=== PATIENT | male | born 1965 | race Caucasian/White ===

== ENCOUNTER 2018-02-17 05:27 | Inpatient (IN) | payer OTHER ==
--- NOTE | 2018-02-17 06:05 | ER ---
Nurse's Notes [facility] Name: Anselmo Balderrama Age: 52 yrs Sex: Male : 1965 Arrival Date: 02/17/2018 Time: 05:31 Bed 7 Private MD: Jack Magdaleno Diagnosis: Abdominal tenderness;Cholelithiasis;Cholecystitis Presentation: 02/17 05:38 Presenting complaint: Patient states: I have had gallstones for a couple of years and I ed1 was taken off my blood thinners for a colonoscopy and I think I am having issues with my gallbladder now. Transition of care: patient was not received from another setting of care. Onset of symptoms was February 17, 2018. Risk Assessment: Do you want to hurt yourself or someone else? Patient reports no desire to harm self or others. Initial Sepsis Screen: Does the patient meet any 2 criteria? No. Patient's initial sepsis screen is negative. Does the patient have a suspected source of infection? No. Patient's initial sepsis screen is negative. Care prior to arrival: None. 05:38 Method Of Arrival: Ambulatory ed1 05:40 Acuity: THIEN 3 lp1 Triage Assessment: 05:42 General: Appears uncomfortable, Behavior is calm, cooperative. Pain: Complains of pain ed1 in right upper quadrant Pain does not radiate. Pain currently is 8 out of 10 on a pain scale. Quality of pain is described as sharp, Pain began suddenly, 3 hours ago. Is continuous. EENT: No signs and/or symptoms were reported regarding the EENT system. Neuro: Level of Consciousness is awake, alert, obeys commands, Oriented to person, place, time, situation. Cardiovascular: Denies chest pain, Heart tones S1 S2 present. Respiratory: Airway is patent Respiratory effort is even, unlabored, Respiratory pattern is regular, symmetrical, Breath sounds are clear bilaterally. Denies cough, shortness of breath. GI: Abdomen is non-distended, Bowel sounds present X 4 quads. Abd is soft X 4 quads Abdomen is tender to palpation in right upper quadrant Patient currently denies diarrhea, nausea, vomiting. : No signs and/or symptoms were reported regarding the genitourinary system. Derm: Skin is intact, is healthy with good turgor, Skin is dry, Skin is normal, Skin temperature is warm. Musculoskeletal: Circulation, motion, and sensation intact. Historical: - Allergies: 05:42 No Known Allergies; ed1 - Home Meds: 05:42 Lisinopril Oral [Active]; atorvastatin oral oral [Active]; Effient oral oral [Active]; ed1 Aspirin Oral [Active]; - PMHx: 05:42 Hypertension; ed1 - PSHx: 05:42 Heart stents; ed1 - Immunization history:: Adult Immunizations up to date, Flu vaccine is not up to date. - Social history:: Smoking status: Patient/guardian denies using tobacco. - Ebola Screening: : Patient negative for fever greater than or equal to 101.5 degrees Fahrenheit, and additional compatible Ebola Virus Disease symptoms Patient denies exposure to infectious person Patient denies travel to an Ebola-affected area in the 21 days before illness onset No symptoms or risks identified at this time. - Family history:: not pertinent. Screenin:46 Abuse screen: Denies threats or abuse. Denies injuries from another. Nutritional ed1 screening: No deficits noted. Tuberculosis screening: No symptoms or risk factors identified. Fall Risk None identified. Assessment: 05:46 General: See triage assessment. ed1 05:51 Reassessment: I agree with triage assessment. lp1 07:00 General: Appears in no apparent distress. comfortable, Behavior is calm, cooperative. rb1 Pain: Complains of pain in right upper quadrant. Neuro: Level of Consciousness is awake, alert, obeys commands, Oriented to person, place, time, situation. Cardiovascular: Capillary refill < 3 seconds is brisk in bilateral fingers. Respiratory: Airway is patent Respiratory effort is even, unlabored, Respiratory pattern is regular, symmetrical. GI: No signs and/or symptoms were reported involving the gastrointestinal system. : No signs and/or symptoms were reported regarding the genitourinary system. Derm: Skin is pink, warm \T\ dry. 08:00 Reassessment: Patient appears in no apparent distress at this time. No changes from rb1 previously documented assessment. pt. ambulated to the restroom without difficulty. 09:05 Reassessment: Called report to FAMILIA Bowers. Information from the [facility] was given. All rb1 questions asked and answered. 09:23 Reassessment: Patient appears in no apparent distress at this time. Patient and/or rb1 family updated on plan of care and expected duration. Pain level reassessed. Patient is alert, oriented x 3, equal unlabored respirations, skin warm/dry/pink. Vital Signs: 05:42 BP 178 / 93; Pulse 52; Resp 18; Temp 98.6(O); Pulse Ox 100% on R/A; Weight 122.47 kg; ed1 Height 6 ft. 4 in. (193.04 cm); Pain 8/10; 08:42 BP 124 / 86; Pulse 62; Resp 16; Temp 97.6(TE); Pulse Ox 98% on R/A; ph 05:42 Body Mass Index 32.87 (122.47 kg, 193.04 cm) ed1 ED Course: 05:31 Patient arrived in ED. es 05:32 Jack Magdaleno MD is Private Physician. es 05:38 Lebron Sim MD is Attending Physician. daniele 05:40 Melody Lyn RN is Primary Nurse. lp1 05:40 Triage completed. lp1 05:42 Arm band placed on right wrist. ed1 05:46 Patient has correct armband on for positive identification. Placed in gown. Bed in low ed1 position. Call light in reach. Side rails up X 1. Adult w/ patient. Pulse ox on. NIBP on. 06:02 Netta Zhang MD is Hospitalizing Provider. daniele 06:56 X-ray completed. Portable x-ray completed in exam room. Patient tolerated procedure sg4 well. 06:57 Inserted saline lock: 20 gauge in right antecubital area, using aseptic technique. lt1 06:58 XRAY Chest (1 view) In Process Unspecified. EDMS 09:37 No provider procedures requiring assistance completed. Patient admitted, IV remains in rb1 place. Administered Medications: 06:15 Drug: NS 0.9% 1000 ml Route: IV; Rate: 1 bolus; Site: right antecubital; lp1 06:15 Drug: Pepcid 20 mg Route: IVP; Site: right antecubital; lp1 07:00 Follow up: Response: No adverse reaction rb1 06:15 Drug: morphine 4 mg Route: IVP; Site: right antecubital; lp1 07:00 Follow up: Response: No adverse reaction; Pain is decreased rb1 06:15 Drug: Zofran 4 mg Route: IVP; Site: right antecubital; lp1 07:00 Follow up: Response: No adverse reaction; Nausea is decreased rb1 06:15 Drug: Zosyn 3.375 grams Route: IVPB; Infused Over: 60 mins; Site: right antecubital; lp1 08:50 CANCELLED (Duplicate Order): NS 0.9% 1000 ml IV at 1 bolus Per protocol; 1000 mL bolus daniele Outcome: 06:05 Decision to Hospitalize by Provider. daniele 09:37 Patient left the ED. rb1 09:37 Admitted to Tele accompanied by tech, family with patient, via wheelchair, room 419, rb1 with chart, Report called to FAMILIA Bowers 09:37 Condition: stable 09:37 Instructed on the need for admit. Signatures: Dispatcher [employer] EDMS Lebron Sim MD MD cha Salyer, Edna es Riggs, Erika, PUBLIC HEALTH DOCTOR PUBLIC HEALTH DOCTOR ed1 Melody Lyn RN RN lp1 Chelita Frias RN RN Sarahy Agarwal, RN RN rb1 Tawana Spain 4 Tanisha Zepeda [facility]
--- NOTE | 2018-02-17 06:06 | EDPHYS ---
Physician Documentation [facility] Name: Anselmo Balderrama Age: 52 yrs Sex: Male : 1965 Arrival Date: 02/17/2018 Time: 05:31 Bed 7 Private MD: Jack Magdaleno ED Physician Lebron Sim HPI: 02/17 05:57 This 52 yrs old Male presents to ER via Ambulatory with complaints of daniele Abdominal Pain. 05:57 The patient presents with abdominal pain in the upper abdomen, in the right upper daniele quadrant, abdominal distention in the upper abdomen, in the lower abdomen. Onset: The symptoms/episode began/occurred this morning, last night. The symptoms do not radiate. Associated signs and symptoms: none. The symptoms are described as crampy, sharp. Modifying factors: The symptoms are alleviated by nothing, remaining still, the symptoms are aggravated by movement, touching the area. Severity of pain: At its worst the pain was moderate in the emergency department the pain is unchanged. The patient has not experienced similar symptoms in the past. Historical: - Allergies: 05:42 No Known Allergies; ed1 - Home Meds: 05:42 Lisinopril Oral [Active]; atorvastatin oral oral [Active]; Effient oral oral [Active]; ed1 Aspirin Oral [Active]; - PMHx: 05:42 Hypertension; ed1 - PSHx: 05:42 Heart stents; ed1 - Immunization history:: Adult Immunizations up to date, Flu vaccine is not up to date. - Social history:: Smoking status: Patient/guardian denies using tobacco. - Ebola Screening: : Patient negative for fever greater than or equal to 101.5 degrees Fahrenheit, and additional compatible Ebola Virus Disease symptoms Patient denies exposure to infectious person Patient denies travel to an Ebola-affected area in the 21 days before illness onset No symptoms or risks identified at this time. - Family history:: not pertinent. ROS: 05:57 Constitutional: Negative for fever, chills, and weight loss, Eyes: Negative for injury, daniele pain, redness, and discharge, ENT: Negative for injury, pain, and discharge, Neck: Negative for injury, pain, and swelling, Cardiovascular: Negative for chest pain, palpitations, and edema, Respiratory: Negative for shortness of breath, cough, wheezing, and pleuritic chest pain, Back: Negative for injury and pain, : Negative for injury, bleeding, discharge, and swelling, MS/Extremity: Negative for injury and deformity, Skin: Negative for injury, rash, and discoloration, Neuro: Negative for headache, weakness, numbness, tingling, and seizure, Psych: Negative for depression, anxiety, suicide ideation, homicidal ideation, and hallucinations, Allergy/Immunology: Negative for hives, rash, and allergies, Endocrine: Negative for neck swelling, polydipsia, polyuria, polyphagia, and marked weight changes, Hematologic/Lymphatic: Negative for swollen nodes, abnormal bleeding, and unusual bruising. 05:57 Abdomen/GI: Positive for abdominal pain, nausea and vomiting, nausea, vomiting. Exam: 05:57 Constitutional: This is a well developed, well nourished patient who is awake, alert, daniele and in no acute distress. Head/Face: Normocephalic, atraumatic. Eyes: Pupils equal round and reactive to light, extra-ocular motions intact. Lids and lashes normal. Conjunctiva and sclera are non-icteric and not injected. Cornea within normal limits. Periorbital areas with no swelling, redness, or edema. ENT: Nares patent. No nasal discharge, no septal abnormalities noted. Tympanic membranes are normal and external auditory canals are clear. Oropharynx with no redness, swelling, or masses, exudates, or evidence of obstruction, uvula midline. Mucous membranes moist. Neck: Trachea midline, no thyromegaly or masses palpated, and no cervical lymphadenopathy. Supple, full range of motion without nuchal rigidity, or vertebral point tenderness. No Meningismus. Chest/axilla: Normal chest wall appearance and motion. Nontender with no deformity. No lesions are appreciated. Cardiovascular: Regular rate and rhythm with a normal S1 and S2. No gallops, murmurs, or rubs. Normal PMI, no JVD. No pulse deficits. Respiratory: Lungs have equal breath sounds bilaterally, clear to auscultation and percussion. No rales, rhonchi or wheezes noted. No increased work of breathing, no retractions or nasal flaring. Back: No spinal tenderness. No costovertebral tenderness. Full range of motion. Male : Normal genitalia with no discharge or lesions. Skin: Warm, dry with normal turgor. Normal color with no rashes, no lesions, and no evidence of cellulitis. MS/ Extremity: Pulses equal, no cyanosis. Neurovascular intact. Full, normal range of motion. Neuro: Awake and alert, GCS 15, oriented to person, place, time, and situation. Cranial nerves II-XII grossly intact. Motor strength 5/5 in all extremities. Sensory grossly intact. Cerebellar exam normal. Normal gait. Psych: Awake, alert, with orientation to person, place and time. Behavior, mood, and affect are within normal limits. 05:57 Abdomen/GI: Inspection: abdomen appears normal, Bowel sounds: normal, Palpation: abdomen is soft and non-tender, Liver: no appreciated palpable abnormalities, Hernia: not appreciated. Vital Signs: 05:42 BP 178 / 93; Pulse 52; Resp 18; Temp 98.6(O); Pulse Ox 100% on R/A; Weight 122.47 kg; ed1 Height 6 ft. 4 in. (193.04 cm); Pain 8/10; 08:42 BP 124 / 86; Pulse 62; Resp 16; Temp 97.6(TE); Pulse Ox 98% on R/A; ph 05:42 Body Mass Index 32.87 (122.47 kg, 193.04 cm) ed1 MDM: 05:38 Patient medically screened. [facility] 06:00 Data reviewed: vital signs, nurses notes, lab test result(s), EKG, radiologic studies. [facility] 02/17 05:57 Order name: Basic Metabolic Panel [facility] 02/17 05:57 Order name: CBC with Diff [facility] 02/17 05:57 Order name: LFT's [facility] 02/17 05:57 Order name: PT-INR; Complete Time: 06:38 [facility] 02/17 05:58 Order name: CBC with Automated Diff; Complete Time: 06:38 EDND 02/17 06:24 Order name: Basic Metabolic Panel; Complete Time: 08:12 EDND 02/17 06:24 Order name: Liver (Hepatic) Function; Complete Time: 08:12 EDND 02/17 06:24 Order name: Troponin (Emerg Dept Use Only); Complete Time: 08:12 EDND 02/17 05:57 Order name: XRAY Chest (1 view) [facility] 02/17 05:57 Order name: EKG; Complete Time: 05:58 [facility] 02/17 05:57 Order name: Cardiac monitoring; Complete Time: 06:57 [facility] 02/17 05:57 Order name: EKG - Nurse/Tech; Complete Time: 06:57 [facility] 02/17 05:57 Order name: IV Saline Lock; Complete Time: 06:57 [facility] 02/17 05:57 Order name: US Abdomen Limited [facility] 02/17 06:24 Order name: NT PRO-BNP; Complete Time: 08:12 EDMS 02/17 06:24 Order name: Magnesium; Complete Time: 08:12 EDMS 02/17 06:24 Order name: Lipase; Complete Time: 08:12 EDMS 02/17 09:37 Order name: US EDND 02/17 05:57 Order name: Labs collected and sent; Complete Time: 06:57 [facility] 02/17 05:57 Order name: O2 Per Protocol; Complete Time: 06:58 [facility] 02/17 05:57 Order name: O2 Sat Monitoring; Complete Time: 06:57 [facility] Administered Medications: 06:15 Drug: NS 0.9% 1000 ml Route: IV; Rate: 1 bolus; Site: right antecubital; lp1 06:15 Drug: Pepcid 20 mg Route: IVP; Site: right antecubital; lp1 07:00 Follow up: Response: No adverse reaction rb1 06:15 Drug: morphine 4 mg Route: IVP; Site: right antecubital; lp1 07:00 Follow up: Response: No adverse reaction; Pain is decreased rb1 06:15 Drug: Zofran 4 mg Route: IVP; Site: right antecubital; lp1 07:00 Follow up: Response: No adverse reaction; Nausea is decreased rb1 06:15 Drug: Zosyn 3.375 grams Route: IVPB; Infused Over: 60 mins; Site: right antecubital; lp1 08:50 CANCELLED (Duplicate Order): NS 0.9% 1000 ml IV at 1 bolus Per protocol; 1000 mL bolus [facility] Disposition: 02/17/18 06:05 Hospitalization ordered by Netta Zhang for Inpatient Admission. Preliminary diagnosis are Abdominal tenderness, Cholelithiasis, Cholecystitis. - Bed requested for Telemetry/MedSurg (Inpatient). - Status is Inpatient Admission. rb1 - Condition is Stable. - Problem is new. - Symptoms have improved. UTI on Admission? No Signatures: Dispatcher [employer] Leona Lovell, RN RN Lebron Lopez MD MD cha Riggs, Erika, SEXUAL ASSAULT NURSE SEXUAL ASSAULT NURSE ed1 Melody Lyn RN RN lp1 Sarahy Agarwal, RN RN rb1 Vianca Benitez RN RN df Corrections: (The following items were deleted from the chart) 06:23 05:58 Basic Metabolic Panel ordered. EDND EDND 06:23 05:58 Liver (Hepatic) Function ordered. EDND EDND 06:23 05:58 MAGNESIUM+C.LAB.BRZ ordered. EDND EDND 06:23 05:58 PROBNP+C.LAB.BRZ ordered. EDND EDND 06:23 05:58 TROPONIN (EMERG DEPT USE ONLY)+C.LAB.BRZ ordered. EDND EDND 06:23 05:58 LIPASE+C.LAB.BRZ ordered. [facility] EDND 07:59 06:05 Hospitalization Ordered by Netta Zhang MD for Inpatient Admission. Preliminary diagnosis is Abdominal tenderness; Cholelithiasis; Cholecystitis. Bed requested for Telemetry/MedSurg (Inpatient). Status is Inpatient Admission. Condition is Stable. Problem is new. Symptoms have improved. UTI on Admission? No. [facility] 08:50 08:50 NS 0.9% 1000 ml IV at 1 bolus Per protocol; 1000 mL bolus ordered. [facility] 09:24 07:59 02/17/2018 06:05 Hospitalization Ordered by Netta Zhang MD for Inpatient df Admission. Preliminary diagnosis is Abdominal tenderness; Cholelithiasis; Cholecystitis. Bed requested for Telemetry/MedSurg (Inpatient). Status is Inpatient Admission. Condition is Stable. Problem is new. Symptoms have improved. UTI on Admission? No. kl 09:37 09:24 02/17/2018 06:05 Hospitalization Ordered by Netta Zhang MD for Inpatient rb1 Admission. Preliminary diagnosis is Abdominal tenderness; Cholelithiasis; Cholecystitis. Bed requested for Telemetry/MedSurg (Inpatient). Status is Inpatient Admission. Condition is Stable. Problem is new. Symptoms have improved. UTI on Admission? No. df
[2018-02-17] MEDS ORDERED: PIPER/TAZO/NS 3.375gm 3.375 GM/100 ML BAG ONE (06:13)
[2018-02-17] MEDS ORDERED: ONDANSETRON 4 MG/2 ML VIAL ONE (06:13)
[2018-02-17] MEDS ORDERED: MORPHINE 4 MG/ML SYR ONE (06:13)
[2018-02-17] MEDS ORDERED: FAMOTIDINE 20 MG/2 ML VIAL IV ONE (06:13)
[2018-02-17] MEDS ORDERED: NA CHLORIDE 0.9% 1,000 ML ONE (06:13)
[2018-02-17 06:15] LABS: Protime INR 1.13
[2018-02-17 06:16] LABS: Absolute Lymphocytes (CBC) 1.6 K/uL (0.7-4.9); Absolute Monocytes 0.4 K/uL (0.1-1.3); Absolute Neutrophil 3.8 K/uL (1.8-8.0); Basophils % 0.4 % (0-1.3); Eosinophils % 2.4 % (0-4.4); Hematocrit 47.2 % (39.6-49.0); Lymphocytes % 27.3 % (15.3-44.8); MPV 9.3 fL (7.6-11.3); Monocytes % 6.8 % (3.3-12.3); RBC Red Blood Cell Count 5.45 M/uL (4.33-5.43)
[2018-02-17 08:09] LABS: ALT/SGPT 37 U/L (12-78); AST/SGOT 19 U/L (15-37); Albumin 3.4 g/dL (3.4-5.0); Alkaline Phosphatase 60 U/L (45-117); BUN Blood Urea Nitrogen 20 mg/dL (7-18); Bicarbonate 26 mmol/L (21-32); Bilirubin Direct 0.1 mg/dL (0-0.2); Bilirubin Total 0.6 mg/dL (0.2-1.0); Glucose Level 118 mg/dL (74-106); Lipase 170 U/L (73-393); Magnesium 2.3 mg/dL (1.8-2.4); NT PRO-BNP 29 pg/mL (<125); Potassium 4.3 mmol/L (3.5-5.1); Protein, Total 6.9 g/dL (6.4-8.2); Sodium Level 144 mmol/L (136-145); Troponin (Emerg Dept Use Only) < 0.02 ng/mL (0.0-0.045)
--- NOTE | 2018-02-17 09:10 | P.HP ---
Certification for Inpatient Patient admitted to: Observation With expected LOS: <2 Midnights Patient will require the following post-hospital care: None Practitioner: I am a practitioner with admitting privileges, knowledge of patient current condition, hospital course, and medical plan of care. Services: Services provided to patient in accordance with Admission requirements found in Title 42 Section 412.3 of the Code of Federal Regulations Patient History Date of Service: 02/17/18 Primary Care Provider: Dr. Magdaleno; Cardiology-Dr. Modi Reason for admission: Right upper quadrant Abdominal pain History of Present Illness: 52-year-old male presented to the emergency room with right upper quadrant abdominal pain. Patient reported right upper quadrant abdominal pain starting late last night. Pain was severe. Had some nausea with this. Patient reports a history of gallstones in the past. In 2016 he had inflammation to the gallbladder. He was not able to get surgery at that time as he had a prior heart catheterization and stents placed. The patient reported that he had a colonoscopy done yesterday with GI-Dr. Denney. He reports that the colonoscopy was normal. Patient is normally on a Effient. This has been held since Monday due to his colonoscopy. Patient came to the ER due to the abdominal pain. No fever, chills. No chest pain or shortness of breath noted. In the ER patient was given morphine with improvement in symptoms. White count 6.0. Hemoglobin 16. Sodium 144, potassium 4.3, BUN of 20, creatinine 1.1 with a GFR 70. Lipase and LFTs unremarkable. Abdominal ultrasound pending at this time. Patient admitted for further evaluation. In the ER, patient appeared comfortable after given pain medication. Patient reports history of CAD with prior stents, hypertension, hyperlipidemia and gallstones. Patient is a former smoker. He rarely drinks alcohol. Allergies No Known Allergies Allergy (Unverified 08/31/14 06:37) Home medications list reviewed: Yes - Past Medical/Surgical History Diabetic: No -: Hypertension -: CAD with prior stents -: Hyperlipidemia -: Cholelithiasis -: Cardiac Stent placement -: Colonoscopy -: Left knee surgery Psychosocial/ Personal History: Patient is - Family History Father -: Heart disease Brother -: Heart disease - Social History Smoking Status: Former smoker Alcohol use: Yes CD- Drugs: No Caffeine use: Yes Place of Residence: Home Review of Systems General: As per HPI Eyes: Unremarkable ENT: Unremarkable Respiratory: Unremarkable Cardiovascular: Unremarkable Gastrointestinal: Nausea, Abdominal Pain, As per HPI Genitourinary: Unremarkable Musculoskeletal: Unremarkable Integumentary: Unremarkable Neurological: Unremarkable Lymphatics: Unremarkable Physical Examination - Physical Exam General: Alert, In no apparent distress, Oriented x3, Cooperative HEENT: Atraumatic, Normocephalic, PERRLA, Mucous membr. moist/pink Neck: Supple, No Thyromegaly Respiratory: Clear to auscultation bilaterally, Normal air movement Cardiovascular: Normal pulses, Regular rate/rhythm Gastrointestinal: Normal bowel sounds, Soft and benign, Non-distended, No ascites, No tenderness, No masses, No rebound, No guarding Musculoskeletal: No erythema, No tenderness, No warmth Integumentary: No tenderness/swelling, No erythema, No warmth, No cyanosis Neurological: Normal speech, Normal strength at 5/5 x4 extr, Normal tone, Normal affect Lymphatics: No axilla or inguinal lymphadenopathy - Studies Laboratory Data (last 24 hrs) 02/17/18 05:55: PT 13.3 H, INR 1.13 02/17/18 05:55: WBC 6.0, Hgb 16.4, Hct 47.2, Plt Count 165 02/17/18 05:55: Sodium Cancelled, Potassium Cancelled, BUN Cancelled, Creatinine Cancelled, Glucose Cancelled, Magnesium Cancelled, Total Bilirubin Cancelled, AST Cancelled, ALT Cancelled, Alkaline Phosphatase Cancelled, Lipase Cancelled Assessment and Plan - Plan Impression: Right upper quadrant abdominal pain with history of cholelithiasis suspect cholecystitis Hypertension Hyperlipidemia CAD with prior stents Recent colonoscopy Plan: Right upper quadrant abdominal pain with history of cholelithiasis suspect cholecystitis: Pain well controlled with medication. Await ultrasound findings. White count within normal range. Patient off that he aunt since last Monday. Cardiology consulted for cardiac clearance if surgery is required. Surgery consultation has been ordered. Await further recommendations from surgery. Patient to remain NPO. Hypertension: Will provide medication IV. Hyperlipidemia: Will hold medication. CAD with prior stents: Patient off Effient since last Monday due to recent colonoscopy. Cardiology consulted for cardiac clearance for possible surgery. Will continue to hold Effient. Recent colonoscopy: Patient had colonoscopy yesterday. He reported that it was normal. Discharge Plan: Home Plan to discharge in: 24 Hours - Advance Directives Does patient have a Living Will: No Does patient have a Durable POA for Healthcare: No - Code Status/Comfort Care Code Status Assessed: Yes (Patient full code.) Time Spent Managing Pts Care (In Minutes): 55
--- NOTE | 2018-02-17 09:37 | RAD REPORT ---
EXAM DESCRIPTION: US - Abdomen Exam Limited - 02/17/2018 9:25 am CLINICAL HISTORY: Abdominal pain COMPARISON: CT study August 2014 FINDINGS: Gallbladder is distended. Wall is upper normal to slightly thickened. Multiple sub centime ter sized gallstones collect in the fundus. Additional small stones and sludge are present near the n sunday. No pericholecystic fluid seen. Common bile duct is normal with no common duct stone identified. IMPRESSION: Multiple gallstones and sludge within a distended gallbladder. Wall thickness is upper n ormal to slightly increased. No biliary tree abnormality.
[2018-02-17] MEDS ORDERED: ACETAMINOPHEN 650MG/RECT SUPP PR PRN (09:41)
[2018-02-17] MEDS ORDERED: ACETAMINOPHEN 500 MG TAB PO PRN (09:41)
[2018-02-17] MEDS ORDERED: SODIUM CHLORIDE 0.9% 10ML INJ IV PRN (09:41)
[2018-02-17] MEDS ORDERED: HYDRALAZINE HCL 20 MG/ML VIAL IV PRN (09:41)
[2018-02-17] MEDS ORDERED: MORPHINE 4 MG/ML SYR IV PRN (09:41)
[2018-02-17] MEDS ORDERED: ONDANSETRON 4 MG/2 ML VIAL IV PRN (09:41)
[2018-02-17] MEDS: NA CHLORIDE 0.9% 1,000 ML IV SCH ×2 (10:42→20:34)
--- NOTE | 2018-02-17 10:50 | CON ---
Chief Complaint: Abdominal pain. Reason For Cardiology Consult: Preoperative clearance. History Of Present Illness: Mr. Balderrama is a gentleman, who had a myocardial infarction several years ago. He had stents placed. Since then, he has done well. He had a stress test within the past 6 mo nths that showed no ischemia. He is known to have gallstones and today's ultrasound again shows gall stones and sludge. The gallbladder is distended, and the wall thickness is slightly increased, all c onsistent with cholecystitis. The patient has known about gallstones for some time and he has been d elaying getting it done. About 2 days ago, he had a colonoscopy that looked good. For that reason, he had been off any antiplatelet agents. He remains off them. So, if the surgeon sees him and deter mines that he would like to take out his gallbladder today, I consider him a good candidate for that. Medications: His home medications are lisinopril, prasugrel, atorvastatin, but prasugrel has been st opped. He had also been on aspirin that likewise has been stopped. Allergies: HE HAS NO ALLERGIES. Physical Examination: General: 6 feet 4 inches, 270 pounds. HEENT: Unremarkable. Lungs: Clear. Heart: Within normal limits. Abdomen: Soft. Extremities: Normal. No cyanosis, clubbing, or edema. His electrocardiogram does not show infarction, injury, or ischemia. Again, I consider him a low andrews y acceptable risk for having cholecystectomy laparoscopically or otherwise. ARCENIO/NICHOLAS Voice ID: [id number] Report ID: [id number]
[2018-02-17] MEDS: PANTOPRAZOLE 40 MG INJ IVP SCH (11:02)
--- NOTE | 2018-02-17 11:17 | RAD REPORT ---
EXAM DESCRIPTION: RAD - Chest Single View - 02/17/2018 6:58 am CLINICAL HISTORY: Abdominal pain, abdominal distention COMPARISON: None. TECHNIQUE: AP portable chest image was obtained 0624 hours . FINDINGS: Lungs are clear. Heart and vasculature are normal. No measurable pleural effusion and no p neumothorax. No acute bony abnormality seen. No acute aortic findings suspected. IMPRESSION: No acute cardiopulmonary process.
[2018-02-17 14:02] LABS: Urine Appearance CLEAR; Urine Bilirubin NEGATIVE (NEG); Urine Blood NEGATIVE (NEG); Urine Color YELLOW; Urine Glucose NEGATIVE (NEG); Urine Protein NEGATIVE (NEG); Urine Specific Gravity 1.015 (1.005-1.030)
[2018-02-17 14:13] LABS: Urine Microscopic Reflex NO UMIC
--- NOTE | 2018-02-17 14:13 | EKG ---
Test Date: 2018-02-17 Test Time: 06:47:40 [employer]: DAYANARAT MEASUREMENT RESULTS: Intervals: Rate: 50 NM: 158 QRSD: 94 QT: 442 QTc: 402 Crowder: P: 37 NM: 158 QRS: 3 T: 27 INTERPRETIVE STATEMENTS: Sinus bradycardia Otherwise normal ECG Compared to ECG 08/31/2014 05:12:12 Sinus rhythm no longer present Electronically Signed On 02-17-18 14:12:47 BRIDGE INSTRUCTOR by Ian Modi
[2018-02-17] MEDS: PIPER/TAZO/NS 3.375gm 3.375 GM/100 ML BAG IVPB SCH (17:33)
--- NOTE | 2018-02-17 23:07 | CON ---
Date of Consultation: 02/17/2018 Reason For Service: Acute cholecystitis, symptomatic cholelithiasis, morbid obesity, history of hear t attacks. History Of Present Illness: This is a case of a 52-year-old patient, comes to us today with epigastr ic right upper quadrant pain. He said last night he was eating some greasy food with a lot of cheese and then developed this pain. Today it did not improve so he came to the ER. He has been told befo re he has gallstones, to have the gallbladder removed but he was busy because he had some myocardial infarct that required stent placement and then anticoagulation. He even had a colonoscopy about a da y ago and he claimed it was negative and that is why he stopped some of the anticoagulation. He nohemy es any dysuria, hematuria, hematochezia, or melena. Denies any recent travelling out of the country. Denies any family member sick at home. Allergies: NONE. Medication: Prasugrel, lisinopril and he has been taking aspirin, he stopped it a few days ago. By Monday, he will be off aspirin completely. Family History: Noncontributory. Social History: He does not smoke. He does not drink alcohol. Physical Examination: General: The patient is awake and alert. HEENT: Pupils are equal and reactive, anicteric. Neck: Supple. Chest: Clear. Abdomen: Epigastric right upper quadrant tenderness. The rest of the abdomen is soft and depressibl e. Extremities: Good capillary refill. Laboratory Data: Blood work shows WBC count of 6.0 with INR of 1.13 and chloride is 112, total bilir ubin 0.6. Abdominal ultrasound shows cholecystitis with gallbladder wall thickening and cholelithias is. Assessment And Plan: This is a 52-year-old patient with a history of myocardial infarction, stent pl acement, recently had a colonoscopy, on anticoagulation with gallbladder disease. He knew in the pas t he has to remove it but he has been busy trying to take care of the rest of the medical issues now. Last night, ate something very greasy. Today he came to the ER. He has been evaluated by the [facility] doctor for the chance of having the gallbladder done during this admission. By Monday, h e will be completely off aspirin and if medically he is okay then we will proceed with laparoscopic, possible open cholecystectomy. We explained the benefits, alternatives, and risks including, but not limited to infection, bleeding, damage to adjacent structures, anesthesia complication, choledocholi thiasis, bile leak, pancreatitis, myocardial infarction and even . He also understands this may not relieve any symptoms, he might need more than one surgical intervention. He understands the imp ortance of diet control even if the gallbladder is removed. PATTI/NICHOLAS Voice ID: [id number] Report ID: [id number]
[2018-02-18] MEDS: PIPER/TAZO/NS 3.375gm 3.375 GM/100 ML BAG IVPB SCH ×3 (01:00→17:12)
[2018-02-18] MEDS ORDERED: PIPER/TAZO/NS 3.375gm 3.375 GM/100 ML BAG ONE (02:55)
[2018-02-18] MEDS: NA CHLORIDE 0.9% 1,000 ML IV SCH ×2 (04:35→17:13)
[2018-02-18 06:12] LABS: Absolute Lymphocytes (CBC) 1.6 K/uL (0.7-4.9); Absolute Monocytes 0.3 K/uL (0.1-1.3); Absolute Neutrophil 2.7 K/uL (1.8-8.0); Basophils % 0.6 % (0-1.3); Eosinophils % 3.4 % (0-4.4); Hematocrit 40.2 % (39.6-49.0); Lymphocytes % 33.1 % (15.3-44.8); MPV 8.5 fL (7.6-11.3); Monocytes % 6.7 % (3.3-12.3); RBC Red Blood Cell Count 4.63 M/uL (4.33-5.43)
[2018-02-18 06:37] LABS: Albumin 3.1 g/dL (3.4-5.0); Magnesium 2.2 mg/dL (1.8-2.4); Potassium 4.1 mmol/L (3.5-5.1)
[2018-02-18] MEDS: PANTOPRAZOLE 40 MG INJ IVP SCH (09:05)
--- NOTE | 2018-02-18 14:15 | P.PN ---
Subjective Date of Service: 02/18/18 Primary Care Provider: Dr. Magdaleno; Cardiology-Dr. Modi Chief Complaint: Right upper quadrant Abdominal pain Patient seen and examined at bedside with RN. Chart reviewed. Case discussed with general surgery. The patient at this time has no complaints to offer. Scheduled for surgery tomorrow morning. Currently remains NPO at this time. IV antibiotics also continued at this time. Review of Systems 10-point ROS is otherwise unremarkable Physical Examination - Vital Signs Temperature: 97.9 F Blood Pressure: 121/75 Pulse: 53 Respirations: 16 Pulse Ox (%): 97 - Physical Exam General: Alert, In no apparent distress HEENT: Atraumatic, PERRLA, EOMI Neck: Supple, JVD not distended Respiratory: Clear to auscultation bilaterally, Normal air movement Cardiovascular: Regular rate/rhythm, Normal S1 S2 Gastrointestinal: Normal bowel sounds, No tenderness Musculoskeletal: No tenderness Integumentary: No rashes Neurological: Normal speech, Normal tone, Normal affect Lymphatics: No axilla or inguinal lymphadenopathy - Studies Medications List Reviewed: Yes Assessment And Plan - Current Problems (Diagnosis) (1) Symptomatic cholelithiasis Current Visit: Yes Status: Acute Plan: Antibiotic cholelithiasis with possible acute cholecystitis -abdominal CT with cholelithiasis at this time -Oral Surgery consulted. Recommendations appreciated at this time -hold aspirin at this time. Cardiology clearance obtained. -patient planned for surgical procedure tomorrow morning. -continue NPO, IV fluids and IV antibiotics until then (2) CAD (coronary artery disease) Current Visit: Yes Status: Chronic Qualifiers: Coronary Disease-Associated Artery/Lesion type: [place] artery [place] vs. transplanted heart: [place] heart Associated angina: without angina Qualified Code(s): I25.10 - Atherosclerotic heart disease of [place] coronary artery without angina pectoris (3) HTN (hypertension) Current Visit: Yes Status: Chronic Qualifiers: Hypertension type: essential hypertension Qualified Code(s): I10 - Essential (primary) hypertension (4) Hyperlipidemia Current Visit: Yes Status: Chronic Qualifiers: Hyperlipidemia type: mixed hyperlipidemia Qualified Code(s): E78.2 - Mixed hyperlipidemia Discharge Plan: Home Plan to discharge in: 48 Hours - Code Status/Comfort Care Code Status Assessed: Yes Critical Care: No
[2018-02-19] MEDS: PIPER/TAZO/NS 3.375gm 3.375 GM/100 ML BAG IVPB SCH ×2 (01:10→08:05)
--- NOTE | 2018-02-19 02:28 | PN ---
Date of Progress Note: 02/18/2018 Diagnoses: Acute cholecystitis, symptomatic cholelithiasis. Subjective: The patient is doing better. Review of Systems: Ten points otherwise unremarkable. Physical Examination: General: The patient is awake and alert. No distress. Chest: Bilateral breath sounds. Abdomen: Abarca sign positive, but the rest of abdomen is soft and depressible. Less pain than yest erday. Extremities: Good capillary refill. Plan: Fully explained to the patient once again, laparoscopic versus open cholecystectomy with benef its, alternatives, and risks including, but not limited to infection, bleeding, damage to adjacent st ructures, anesthesia complications, choledocholithiasis, bile leak, pancreatitis, myocardial infarcti on, and even . He also understands this may not relieve any symptoms. He might need more than one surgical intervention. He understand also once again the importance of being of weight loss. PATTI/MODL Voice ID: [id number] Report ID: [id number]
[2018-02-19 04:05] LABS: Absolute Lymphocytes (CBC) 1.7 K/uL (0.7-4.9); Absolute Monocytes 0.3 K/uL (0.1-1.3); Absolute Neutrophil 2.4 K/uL (1.8-8.0); Basophils % 0.3 % (0-1.3); Eosinophils % 3.5 % (0-4.4); Hematocrit 38.7 % (39.6-49.0); Lymphocytes % 36.7 % (15.3-44.8); MPV 9.3 fL (7.6-11.3); RBC Red Blood Cell Count 4.49 M/uL (4.33-5.43)
[2018-02-19 04:24] LABS: Bilirubin Total 1.1 mg/dL (0.2-1.0); Potassium 3.8 mmol/L (3.5-5.1); Protein, Total 5.8 g/dL (6.4-8.2)
[2018-02-19] MEDS ORDERED: KCL 20 MEQ/100 mL IVPB 20 MEQ/100 ML BAG IV SCH (05:11)
[2018-02-19] MEDS: NA CHLORIDE 0.9% 1,000 ML IV SCH (05:50)
[2018-02-19] MEDS: PANTOPRAZOLE 40 MG INJ IVP SCH (08:05)
[2018-02-19] MEDS ORDERED: ONDANSETRON 4 MG/2 ML VIAL ONE (10:17)
[2018-02-19] MEDS ORDERED: LIDOCAINE 2% MPF 5 ML VIAL ONE (10:17)
[2018-02-19] MEDS ORDERED: PROPOFOL 200 MG/20 ML VIAL IV ONE (10:17)
[2018-02-19] MEDS ORDERED: ROCURONIUM 50 MG/5 ML VIAL IV ONE (10:17)
[2018-02-19] MEDS ORDERED: FENTANYL CITR 250 MCG/5 ML ONE (10:17)
[2018-02-19] MEDS ORDERED: MIDAZOLAM HCL 2 MG/2 ML INJ ONE (10:17)
[2018-02-19] MEDS ORDERED: DEXAMETHASONE 10 MG/ML VIAL ONE (10:28)
[2018-02-19] MEDS ORDERED: BUPIVACAINE 0.5% PF 10 ML VIAL ONE (10:42)
[2018-02-19] MEDS ORDERED: KETOROLAC 30 MG/ML INJ ONE (12:07)
[2018-02-19] MEDS ORDERED: GLYCOPYRROLATE 0.2 MG/ML SYR ONE (12:16)
[2018-02-19] MEDS ORDERED: NEOSTIGMINE 1 MG/ML -5 ML SYRINGE ONE (12:16)
[2018-02-19] MEDS ORDERED: Mastisol Adhesive Liq ONE (12:20)
[2018-02-19] MEDS ORDERED: HYDROCODONE/APAP 7.5/325 MG TAB PO PRN (12:32)
--- NOTE | 2018-02-19 13:54 | P.DS ---
Admission Date: 02/18/18 Discharge Date: 02/19/18 Primary Care Provider: Dr. Magdaleno; Cardiology-Dr. Modi Disposition: ROUTINE DISCHARGE Discharge Condition: GOOD Reason for Admission: Right upper quadrant Abdominal pain Consultations: General surgery Procedures: Laparoscopic cholecystotomy - Problems (1) Symptomatic cholelithiasis Onset Date: 02/19/18 Current Visit: Yes Status: Acute (2) CAD (coronary artery disease) Onset Date: 02/19/18 Current Visit: Yes Status: Chronic Qualifiers: Coronary Disease-Associated Artery/Lesion type: [place] artery [place] vs. transplanted heart: [place] heart Associated angina: without angina Qualified Code(s): I25.10 - Atherosclerotic heart disease of [place] coronary artery without angina pectoris (3) HTN (hypertension) Onset Date: 02/19/18 Current Visit: Yes Status: Chronic Qualifiers: Hypertension type: essential hypertension Qualified Code(s): I10 - Essential (primary) hypertension (4) Hyperlipidemia Onset Date: 02/19/18 Current Visit: Yes Status: Chronic Qualifiers: Hyperlipidemia type: mixed hyperlipidemia Qualified Code(s): E78.2 - Mixed hyperlipidemia Brief History of Present Illness: 52-year-old male presented to the emergency room with right upper quadrant abdominal pain. Patient reported right upper quadrant abdominal pain starting late last night. Pain was severe. Had some nausea with this. Patient reports a history of gallstones in the past. In 2017 he had inflammation to the gallbladder. He was not able to get surgery at that time as he had a prior heart catheterization and stents placed. The patient reported that he had a colonoscopy done yesterday with GI-Dr. Denney. He reports that the colonoscopy was normal. Patient is normally on a Effient. This has been held since Monday due to his colonoscopy. Patient came to the ER due to the abdominal pain. No fever, chills. No chest pain or shortness of breath noted. In the ER patient was given morphine with improvement in symptoms. White count 6.0. Hemoglobin 16. Sodium 144, potassium 4.3, BUN of 20, creatinine 1.1 with a GFR 70. Lipase and LFTs unremarkable. Abdominal ultrasound pending at this time. Patient admitted for further evaluation. In the ER, patient appeared comfortable after given pain medication. Patient reports history of CAD with prior stents, hypertension, hyperlipidemia and gallstones. Patient is a former smoker. He rarely drinks alcohol. Hospital Course: Overall during the hospital stay patient main stable The patient was initially admitted to the hospital for symptomatic cholelithiasis after presenting to the ER with right upper quadrant pain nausea vomiting. General surgery was consulted. Patient was kept NPO with IV fluids and IV antibiotics. Patient does have chronic history of CAD for which she takes aspirin which was. Here in the hospital. Patient did well in 24-48 hr after stopping aspirin. At that time general surgery took the patient to the OR and performed Lap Vicky. Patient did well overall. No complaints to offer. Postprocedure patient was able to ambulate and tolerate his diet well and thus was discharged home under stable condition. Patient was asked to resume taking his aspirin from tomorrow. Patient was asked to follow up with primary care provider in about 1-2 days post discharge as well. Vital Signs/Physical Exam: Temp Pulse Resp BP Pulse Ox 97.7 F 69 16 135/79 95 02/19/18 12:51 02/19/18 12:51 02/19/18 12:51 02/19/18 12:51 02/19/18 04:00 General: Alert, In no apparent distress HEENT: Atraumatic, PERRLA, EOMI Neck: Supple, JVD not distended Respiratory: Clear to auscultation bilaterally, Normal air movement Cardiovascular: Regular rate/rhythm, Normal S1 S2 Gastrointestinal: Normal bowel sounds, No tenderness Musculoskeletal: No tenderness Integumentary: No rashes Neurological: Normal speech, Normal tone, Normal affect Lymphatics: No axilla or inguinal lymphadenopathy Laboratory Data at Discharge: WBC 4.5 K/uL (4.3-10.9) 02/19/18 03:27 Hgb 13.6 g/dL (13.6-17.9) 02/19/18 03:27 Hct 38.7 % (39.6-49.0) L 02/19/18 03:27 Plt Count 133 K/uL (152-406) L 02/19/18 03:27 PT 13.3 SECONDS (9.5-12.5) H 02/17/18 05:55 INR 1.13 02/17/18 05:55 Sodium 142 mmol/L (136-145) 02/19/18 03:27 Potassium 3.8 mmol/L (3.5-5.1) 02/19/18 03:27 BUN 18 mg/dL (7-18) 02/19/18 03:27 Creatinine 1.02 mg/dL (0.55-1.3) 02/19/18 03:27 Glucose 79 mg/dL (74-106) 02/19/18 03:27 Magnesium 2.0 mg/dL (1.8-2.4) 02/19/18 03:27 Total Bilirubin 1.1 mg/dL (0.2-1.0) H 02/19/18 03:27 AST 21 U/L (15-37) 02/19/18 03:27 ALT 32 U/L (12-78) 02/19/18 03:27 Alkaline Phosphatase 49 U/L (45-117) 02/19/18 03:27 Lipase 170 U/L (73-393) 02/17/18 07:45 Home Medications: Atorvastatin Calcium 40 mg PO BEDTIME 02/17/18 Lisinopril 5 mg PO DAILY 02/17/18 Prasugrel HCl 10 mg PO DAILY 02/17/18 Amox/Clavulanate [Augmentin 875-125 Tab] 1 each PO BID #10 tab 02/19/18 Codeine/APAP [Tylenol W/Codeine #3 tab] 1 tab PO Q4HP PRN #30 tab 02/19/18 New Medications: Codeine/APAP [Tylenol W/Codeine #3 tab] 1 tab PO Q4HP PRN #30 tab PRN Reason: Pain Amox/Clavulanate [Augmentin 875-125 Tab] 1 each PO BID #10 tab Patient Discharge Instructions: keep area dry for 48h then may shower. Keep sterile strips intact. Diet: AHA Activity: No lifting more than 10 lbs Followup: Jc Ratliff MD [ACTIVE - CAN ADMIT] - 1 Week
--- NOTE | 2018-02-20 02:56 | OP ---
Date of Procedure: 02/19/2018 Surgeon: Jc Ratliff MD Director Biomedical Engineering: Virginia Jones. Preoperative Diagnoses: Acute cholecystitis, symptomatic cholelithiasis, status post MO and stent pl acement. Postoperative Diagnoses: Acute cholecystitis, symptomatic cholelithiasis, status post MO and stent p lacement. Procedure: Laparoscopic cholecystectomy. Ebl: Less than 10 cc. Specimen: Gallbladder. Indication: This is the case of a 52-year-old patient, who comes to us with above diagnosis. Fully explained the benefits, alternatives, and risks of laparoscopic, possible open cholecystectomy, which include but are not limited to infection, bleeding, damage to adjacent structures, anesthesia compli cation, choledocholithiasis, bile leak, pancreatitis, MO, and even . He also understands this m ay not relieve any symptoms, he might need more than one surgical intervention. He understood, callum d a consent. Description Of Procedure: The patient was brought to the operating room, placed in supine position. Anesthesia was induced without complication. Abdominal area was prepped and draped in usual sterile fashion. Marcaine 0.5% was injected for local anesthetic, followed by sharp incision of the skin in the infraumbilical region. Incision was carried down to fascia, which was opened under direct visio n. Peritoneum was encountered, opened under direct vision. Vicryl #1 was placed inside the fascia. Andreas trocar was carefully introduced. Pneumoperitoneum was obtained. I placed 3 more trocars, 5 mm each one of them, 1 in the epigastric area and 2 in the right upper quadrant using same technique, which consisted of local anesthetic, sharp incision of the skin, and introduction of the trocars und er direct vision. This allowed me to put a grasper in the fundus of the gallbladder, another grasper in the infundibulum, retracted the gallbladder in the inferolateral fashion exposing the triangle of Calot, obtaining critical view of safety. The cystic duct and cystic artery were clearly isolated f ree circumferentially and a connection between those and the gallbladder were clearly identified. I proceeded to ligate those by using at least 3 clips proximal, 1 clip distal, and ligation in middle. Same was done with the cystic artery. No bile leak. No bleeding. The gallbladder was removed from liver using Bovie cauterizer and removed from the abdominal cavity using an EndoCatch through the um bilical incision. The area was inspected once again. Clips were intact. Gallbladder fossa was inta ct. At that moment, I proceeded to remove the trocars under direct vision, deflated pneumoperitoneum , closed the fascia with #1 Vicryl, irrigated subcu tissue and closed that with 3-0 chromic and skin with 3-0 chromic. Sponge count and instrument counts were correct. The patient tolerated the proced ure well. The patient was sent to recovery room in stable condition. If the patient tolerates diet, the patient will be discharged home, follow up in my office in 1 week. Call for appointment at [phone]. Medication prescription ordered. PATTI/NICHOLAS Voice ID: [id number] Report ID: [id number]
== END 2018-02-19 18:04 | disposition home or self-care (01) | DRG 419 ==
LOC: SUPCPDRO 05:27 → ER 05:27 → ERHOLD 06:49 → 4TH 09:24 → OBSVTOIN 02-18 17:14
PROVIDERS: ADMIT Family Medicine; ATTEND Family Medicine
PROC: 0FT44ZZ Resection of Gallbladder, Percutaneous Endoscopic Approach (ICD-10-PCS; principal; 2018-02-19 13:15)
DX: K80.00 Calculus of gallbladder with acute cholecystitis without obstruction (principal); I25.10 Atherosclerotic heart disease of native coronary artery without angina pectoris; Z95.5 Presence of coronary angioplasty implant and graft; I10 Essential (primary) hypertension; E78.5 Hyperlipidemia, unspecified; I25.2 Old myocardial infarction
CPT/HCPCS: 36415; 71045; 76705; 80048; 80053; 80076; 81003; 83690; 83735; 83880; 84484; 85025; 85610; 88304; 93005; 96374; 96375; 99285; C9113; J1100; J2250; J2405; J2543; J2704; J2710; J3010; J7030